=== PATIENT | female | born 1965 | race Caucasian/White ===

== ENCOUNTER 2018-09-26 18:12 | Emergency (ER) | payer MEDICAID ==
[~2018-09-26] VITALS: Ht 162.6 cm; Wt 62.7 kg
[~2018-09-26 18:12] MED LIST: AMOXICILLIN500 MG PO; ATROVENT HFA17 MCG IN; COMBIVIR 1501 COMBO PO; FLEXERIL PO; NAPROSYN500 MG PO; PROAIR HFA IN; ROBITUSSIN AC10 ML PO; SUSTIVA600 MG PO; TRAMADOL HCL50 MG PO; TRICOR145 MG PO; ULTRAM50 M1 PO; ZANAFLEX4 MG PO
[2018-09-26] MEDS ORDERED: HIV MEDICATION (19:05)
[2018-09-26] MEDS ORDERED: KEFLEX500 M1 PO (19:16)
[2018-09-26] MEDS ORDERED: BACTROBAN TOP (19:16)
[2018-09-26 19:20] VITALS: BP 135/86
[2018-09-26] MEDS ORDERED: TRIUMEQ 600-50-1 TAB PO (19:21)
[2018-09-26] MEDS ORDERED: ACYCLOVIR800 MG PO (19:22)
[2018-09-26] MEDS ORDERED: LOPID600 MG PO (19:22)
== END 2018-09-26 19:20 | disposition home or self-care (01) ==
LOC: ED 18:12
DX: L01.00 Impetigo, unspecified (principal); F17.200 Nicotine dependence, unspecified, uncomplicated; Z21 Asymptomatic human immunodeficiency virus [HIV] infection status; R21 Rash and other nonspecific skin eruption; L29.9 Pruritus, unspecified

== ENCOUNTER 2018-12-02 16:54 | Emergency (ER) | payer MEDICAID ==
[~2018-12-02] VITALS: Ht 162.6 cm; Wt 50.0 kg
[~2018-12-02 16:54] MED LIST changes: +ACYCLOVIR800 MG PO; +BACTROBAN TOP; +HIV MEDICATION; +KEFLEX500 M1 PO; +LOPID600 MG PO; +TRIUMEQ 600-50-1 TAB PO
[2018-12-02 17:34] LABS: HEMATOCRIT 41.3 % (37.0-47.0); HEMOGLOBIN 13.9 g/dl (12.0-16.0); IMMATURE GRANULOCYTES 0.9 % (0.0-5.0); MEAN CORPUSCULAR HGB 34.1 pG CALC (26.0-32.0); MEAN CORPUSCULAR HGB CONC 33.7 g/L CALC (32.0-36.0); NEUT# 4.2 thou/uL (2.00-7.15); RED BLOOD COUNT 4.08 mill/uL (4.20-5.60); RED CELL DISTRI WIDTH 13.2 % (11.5-15.5)
[2018-12-02 17:36] LABS: MEAN CELL VOLUME 101.2 fL CALC (80.0-100.0)
[2018-12-02 17:38] LABS: ALBUMIN 4.7 g/dL (3.2-5.0); ALKALINE PHOSPHATASE 77 u/l (38-126); ANION GAP 15 (6-22 (CALC)); BILIRUBIN, TOTAL 0.4 mg/dL (0.0-1.4); BUN 12 mg/dL (7-17); BUN/CREATININE RATIO 16 (12-20 (CALC)); CARBON DIOXIDE 23 mmol/l (22-30); CHLORIDE 105 mmol/l (95-108); CREATININE 0.8 mg/dL (0.5-1.0); GFR > 60 ML/MIN (>=60 (CALC)); GFR FOR AFR.AMER. > 60 ML/MIN (>=60 (CALC)); POTASSIUM 3.7 mmol/l (3.5-5.1); SGOT/AST 25 u/l (14-36); SODIUM 139 mmol/l (137-146); TOTAL PROTEIN 7.9 g/dL (6.3-8.2)
[2018-12-02 18:18] LABS: URINE BILIRUBIN - DIPSTICK NEGATIVE (NEGATIVE); URINE BLOOD DIPSTICK TRACE-LYSED (NEGATIVE); URINE COLOR YELLOW; URINE GLUCOSE - DIPSTICK NEGATIVE (NEGATIVE); URINE KETONE NEGATIVE (NEGATIVE); URINE LEUK ESTERASE NEGATIVE (Negative); URINE NITRITE - DIPSTICK NEGATIVE (Negative); URINE PROTEIN - DIPSTICK NEGATIVE (NEG-TRACE); URINE SPECIFIC GRAVITY <=1.005; URINE UROBILINOGEN - DIPSTICK 0.2 E.U./dL (0.2)
[2018-12-02 18:21] LABS: URINE CLARITY CLEAR
[2018-12-02 18:34] VITALS: BP 134/71
== END 2018-12-02 18:34 | disposition left against medical advice (07) ==
LOC: ED 16:54
PROVIDERS: Family Medicine
DX: R07.9 Chest pain, unspecified (principal); Z91.19 Patient's noncompliance with other medical treatment and regimen; R06.02 Shortness of breath; R11.2 Nausea with vomiting, unspecified; R94.31 Abnormal electrocardiogram [ECG] [EKG]

== ENCOUNTER 2024-02-11 14:23 | Emergency (ER) | payer MEDICAID ==
[~2024-02-11] VITALS: Ht 162.6 cm; Wt 54.4 kg
[2024-02-11] MEDS ORDERED: TRIUMEQ 600-50-1 TAB (14:33)
[2024-02-11] MEDS ORDERED: ATROVENT H17 MCG/ACT (14:33)
[2024-02-11] MEDS ORDERED: ORPHENADRINE CITRATE 30 MG/ML AMP IM ONE (14:45)
[2024-02-11] MEDS ORDERED: KETOROLAC TROMETHAMINE 30 MG/ML SDV IM ONE (14:45)
[2024-02-11 15:38] VITALS: BP 186/89
[2024-02-11 15:46] VITALS: BP 172/75
[2024-02-11 16:01] VITALS: BP 163/98
[2024-02-11] MEDS ORDERED: METHOCARBAMOL500 MG PO (16:32)
[2024-02-11] MEDS ORDERED: NAPROXEN500 MG PO (16:32)
[2024-02-11 16:35] VITALS: BP 163/98
== END 2024-02-11 16:39 | disposition home or self-care (01) ==
LOC: ED 14:23
DX: S40.012A Contusion of left shoulder, initial encounter (principal); F17.210 Nicotine dependence, cigarettes, uncomplicated; W18.2XXA Fall in (into) shower or empty bathtub, initial encounter; Y93.E1 Activity, personal bathing and showering; Y92.002 Bathroom of unspecified non-institutional (private) residence as the place of occurrence of the external cause; Z21 Asymptomatic human immunodeficiency virus [HIV] infection status

== ENCOUNTER 2024-05-14 02:21 | Emergency (ER) | payer MEDICAID ==
[2024-05-14] VITALS (9 sets, daily range): BP systolic 95–149; BP diastolic 55–95
[~2024-05-14] VITALS: Ht 162.6 cm; Wt 63.0 kg
[~2024-05-14 02:21] MED LIST changes: +ATROVENT H17 MCG/ACT; +METHOCARBAMOL500 MG PO; +NAPROXEN500 MG PO; +TRIUMEQ 600-50-1 TAB
[2024-05-14] MEDS ORDERED: METOPROLOL TARTRATE 5 MG/5 ML VIAL IV ONE (02:30)
[2024-05-14] MEDS ORDERED: blood pressure med (02:31)
[2024-05-14] MEDS ORDERED: SODIUM CHLORIDE 0.9% 1,000 ML IV ONE (02:35)
[2024-05-14 02:54] LABS: BASO% 0.3 % (0-3); EOS% 1.7 % (0-8); HEMATOCRIT 44.1 % (37.0-47.0); HEMOGLOBIN 15.3 g/dl (12.0-16.0); IMMATURE GRANULOCYTES 1.3 % (0.0-5.0); LYMPH% 41.9 % (15-41); MEAN CELL VOLUME 101.1 fL CALC (80.0-100.0); MEAN CORPUSCULAR HGB 35.1 pG CALC (26.0-32.0); MEAN CORPUSCULAR HGB CONC 34.7 g/dL CAL (32.0-36.0); MONO% 8.8 % (2-13); NEUT# 5.81 thou/uL (2.00-7.15); RED BLOOD COUNT 4.36 mill/uL (4.20-5.60); RED CELL DISTRI WIDTH 12.8 % (11.5-15.5)
[2024-05-14 03:01] LABS: ALBUMIN 4.1 g/dL (3.2-5.0); CREATININE 0.6 mg/dL (0.5-1.0); TOTAL PROTEIN 7.3 g/dL (6.3-8.2)
[2024-05-14 03:02] LABS: BILIRUBIN, TOTAL 0.4 mg/dL (0.02-1.3); POTASSIUM 3.4 mmol/l (3.5-5.1)
[2024-05-14 03:32] LABS: URINE BILIRUBIN - DIPSTICK Negative (NEGATIVE); URINE BLOOD DIPSTICK Small (NEGATIVE); URINE GLUCOSE - DIPSTICK Negative (NEGATIVE); URINE KETONE Negative (NEGATIVE); URINE LEUK ESTERASE Negative (NEGATIVE); URINE NITRITE - DIPSTICK Negative (Negative); URINE PH 5.5 (4.5-8.0); URINE PROTEIN - DIPSTICK Negative (NEG-TRACE); URINE SPECIFIC GRAVITY <=1.005; URINE UROBILINOGEN - DIPSTICK 0.2 E.U./dL (0.2)
[2024-05-14 03:40] LABS: URINE COLOR Yellow
[2024-05-14 03:51] LABS: URINE SQUAMOUS EPITHELIAL CELL FEW EPI/hpf (0-FEW); URINE WBC 0-2 WBC/hpf (0-5)
== END 2024-05-14 04:17 | disposition left against medical advice (07) ==
LOC: ED 02:21
PROVIDERS: Emergency Medicine
DX: R07.9 Chest pain, unspecified (principal); I48.91 Unspecified atrial fibrillation; I10 Essential (primary) hypertension; F17.200 Nicotine dependence, unspecified, uncomplicated; Z21 Asymptomatic human immunodeficiency virus [HIV] infection status; Z53.29 Procedure and treatment not carried out because of patient's decision for other reasons